=== PATIENT | female | born 1995 | race Caucasian/White ===

== ENCOUNTER 2020-06-01 06:47 | Day surgery (SDC) | payer BC ==
[2020-06-01] MEDS ORDERED: Ringers Lactate 1,000 ML IV ONE (07:25)
[2020-06-01] MEDS ORDERED: CEFAZOLIN/SWI 1gm 1 GM/10 ML SYR ONE (07:26)
[2020-06-01] MEDS ORDERED: Mastisol Adhesive Liq ONE (07:43)
[2020-06-01] MEDS ORDERED: LIDOCAINE 1% W/EPI 1:100,000 MDV 20 ML VIAL ONE (07:43)
[2020-06-01] MEDS ORDERED: dexAMETHasone 10 MG/ML VIAL ONE (08:41)
[2020-06-01] MEDS ORDERED: MIDAZOLAM HCL 2 MG/2 ML INJ ONE (08:41)
[2020-06-01] MEDS ORDERED: ONDANSETRON 4 MG/2 ML VIAL ONE (08:41)
[2020-06-01] MEDS ORDERED: propofoL 200 MG/20 ML VIAL IV ONE (08:41)
[2020-06-01] MEDS ORDERED: LIDOCAINE 1% MPF 5 ML VIAL ONE (08:41)
[2020-06-01] MEDS ORDERED: FENTANYL CITR 100 MCG/2 ML ONE ×2 (08:41→09:32)
[2020-06-01] MEDS ORDERED: ROCURONIUM 50 MG/5 ML VIAL IV ONE (08:41)
--- NOTE | 2020-06-01 10:28 | P.BOP ---
Preoperative diagnosis: thyroid neoplasm uncertain behavior Postoperative diagnosis: same Primary procedure: right hemithyroidectomy Manager Loan: Delfina Stock Estimated blood loss: 10ml Specimen: right thyroid Findings: firm 2cm nodule, inferior pole. Superior pole wrapping posteriorly Anesthesia: General Complications: None Drain(s): BELLE drain Fluids & blood products: crystalloid 750ml Transferred to: Recovery Room Condition: Good
[2020-06-01] MEDS ORDERED: KETOROLAC 30 MG/ML INJ ONE (10:29)
[2020-06-01 10:40] VITALS: TEMP 97
[2020-06-01] MEDS ORDERED: TRAMADOL HCL 50 MG TAB ONE (11:32)
[2020-06-01 12:12] VITALS: BP 133/69; O2SAT 99
--- NOTE | 2020-06-01 21:24 | OP ---
Date of Procedure: 06/01/2020 Surgeon: Frances Colon MD Merchandising Intern: Deflina Stock. Preoperative Diagnosis: Neoplasm of uncertain behavior, right thyroid. Postoperative Diagnosis: Neoplasm of uncertain behavior, right thyroid. Procedure: Right hemithyroidectomy. Indication For Procedure: The patient presented with a palpable 2 cm right thyroid nodule. Her fine -needle aspiration showed follicular cells and molecular testing was suspicious with a 50% risk of ma lignancy. The risks, benefits, and alternatives including total versus hemithyroidectomy were discus sed with the patient. Given the uncertain behavior of the nodule, we elected for a hemithyroidectomy to reduce the overall risk of surgery and if confirmed benign to reduce the risk of lifelong thyroid supplementation requirement. Procedure In Detail: The patient was brought to the operating room. She was placed under general an esthesia via oral endotracheal tube. The shoulder roll was placed and the neck was extended with sup port of the head. The neck was cleaned with alcohol and the planned incision site was injected with 1% lidocaine with epinephrine. A total of 4 mL were used. The neck was then prepped with Betadine a nd draped in a sterile fashion. A 5 cm low collar incision was made through the skin and subcutaneou s tissues. The platysma layer was identified and divided, and subplatysmal flaps were elevated super iorly and inferiorly. The strap muscles were identified and within the midline. The right strap muscles were elevated off the anterior surface of the thyroid. There was no significant diffi culty in bluntly elevating these muscles. I did not have any gross suspicion for extracapsular exten dion of the 2 cm inferior pole nodule into the extra thyroidal tissues. The inferior pole was mobili zed by dissection and division of the vasculature using a LigaSure. The lateral border was followed inferior to superior using the LigaSure to divide fascial attachments and follow that small vessels. The middle thyroid vein was identified and divided. The dissection was carried up around the superi or pole. The superior pole was noted to extend and wrap posteriorly requiring retraction on the supe rior pole with division of the soft tissue attachments. While rotating the thyroid specimen medially , there was some small nodular attachments, which appeared to be consistent with thyroid tissue and w ere included with the primary specimen. Upon approach towards the insertion point of the recurrent l aryngeal nerve, careful meticulous dissection was taken out to divide the soft tissue attachments and avoid damage to the recurrent laryngeal nerve. The isthmus was then dissected from the soft tissues superior and inferior to it, and the LigaSure was used to divide the isthmus. The thyroid tissue wa s then elevated off the anterior wall of the trachea and additional dissection was carried down until the specimen was completely removed. After removal, the right thyroid was carefully inspected. The re was no visible parathyroid tissue noted on the surface of the gland and the specimen was sent to athology for permanent section. Careful inspection of the surgical bed revealed no significant bleed ing. A saline irrigation and Valsalva were performed. After Valsalva, a small area of oozing along the right tracheal wall was noted and treated with electrocautery. A 10-[place] BELLE drain was then trey luis alberto into the right neck and turn to appropriate size. The drain was secured using a 4-0 nylon suture . A single Vicryl suture was placed to approximate the strap muscles across the tracheal wall. The incision was then closed in a layered fashion using 4-0 Vicryl deep sutures and 4-0 Monocryl running subcuticular sutures. The incision was cleaned and Steri-Strips and Mastisol were applied to reduce tension on the wound and prevent any crusting. The patient was then returned to care of Anesthesia f or awakening and extubation in the operating room, which proceeded without difficulty. Disposition: The patient will be discharged home later today and follow up with Dr. Colon in 3 day s for removal of the drain and for further management of her condition. SEBAS/MARIEL Voice ID: [id number] Report ID: [id number]
== END 2020-06-01 11:40 | disposition home or self-care (01) ==
LOC: OR 06:47
PROVIDERS: ATTEND Otolaryngology
PROC: 0GBH0ZZ Excision of Right Thyroid Gland Lobe, Open Approach (ICD-10-PCS; principal; 2020-06-01 08:30)
DX: C73 Malignant neoplasm of thyroid gland (principal); E06.3 Autoimmune thyroiditis; Z20.822 Contact with and (suspected) exposure to COVID-19
CPT/HCPCS: 60210; 81025; 88305; U0002; J2704; J2250; J3010 ×2; J1100; J0690; J7120; J2405; 88307